=== PATIENT | male | born 1990 | race Two or more races ===

== ENCOUNTER 2016-08-23 01:09 | Emergency (ER) | payer OTHER, SELFPAY ==
[~2016-08-23] VITALS: Ht 157.5 cm; Wt 76.8 kg
[2016-08-23] MEDS ORDERED: DIPH,PERTUSS(ACELL),TET VAC/PF 0.5 ML IM-VACC ONE ×2 (01:49→02:00)
[2016-08-23] MEDS ORDERED: LIDOCAINE 1%, 20ML ONE (01:49)
[2016-08-23] MEDS ORDERED: LIDOCAINE 1%, 20ML INFIL ONE (02:00)
[2016-08-23] MEDS ORDERED: BACITRACIN ZINC OINT 500U/GM, 0.9 GM ONE (03:47)
[2016-08-23 04:08] VITALS: BP 120/85
== END 2016-08-23 04:10 | disposition home or self-care (01) ==
LOC: ED 03:22
DX: S61.216A Laceration without foreign body of right little finger without damage to nail, initial encounter (principal); W25.XXXA Contact with sharp glass, initial encounter; Y93.89 Activity, other specified; Y92.89 Other specified places as the place of occurrence of the external cause; Y99.8 Other external cause status
CPT/HCPCS: 13121; 90471; 90715